=== PATIENT | female | born 1975 | race Two or more races ===

== ENCOUNTER 2024-09-01 07:10 | Outpatient (CLI) | payer OTHER | END 2024-09-01 07:21 | disposition home or self-care (01) | LOC: MAMO-SONO 07:10 | PROVIDERS: ATTEND Surgery | DX: D72.819 Decreased white blood cell count, unspecified (principal); K76.0 Fatty (change of) liver, not elsewhere classified; N60.21 Fibroadenosis of right breast; N60.11 Diffuse cystic mastopathy of right breast; N60.22 Fibroadenosis of left breast; N60.12 Diffuse cystic mastopathy of left breast; D24.1 Benign neoplasm of right breast; Z83.2 Family history of diseases of the blood and blood-forming organs and certain disorders involving the immune mechanism ==

== ENCOUNTER 2024-10-30 06:35 | Outpatient (CLI) | payer OTHER ==
[2024-10-30 07:59] LABS: BASO % 0.5 % (0.1-1.2); EOS # 0.21 (0.04-0.54); EOS % 5.7 % (0.7-7.0); LYMPH # 1.01 (1.18-3.74); LYMPH % 27.4 % (19.3-53.1); MEAN PLATELET VOLUME 10.40 fl (9.4-12.4); MONO # 0.35 (0.24-0.82); MONO % 9.5 % (4.7-12.5); NEUT # 2.09 (1.56-6.13); NEUT % 56.6 % (34.0-71.1); RED CELL DISTRIBUTION WIDTH 14.1 % (11.6-14.4)
[2024-10-30 08:23] LABS: URINE APPEARANCE Clear; URINE BILIRRUBIN Negative (NEGATIVE); URINE BLOOD Negative; URINE COLOR Yellow; URINE GLUCOSE Negative (NEGATIVE); URINE KETONE Trace (NEGATIVE); URINE LEUKOCYTE Trace; URINE NITRATE Negative; URINE PROTEIN Negative (NEGATIVE); URINE UROBILINOGEN 1.0 E.U./dl
[2024-10-30 08:24] LABS: URINE BACTERIA 1432.7 uL (0.0-1933); URINE EPITHELIAL CELLS 25.5 uL (0.0-38.8); URINE RBC 4.1 uL (0.0-20.8); URINE WBC 32.9 uL (0.0-23.2)
[2024-10-30 08:26] LABS: URINE CAST 0.87 uL (0.0-1.40)
[2024-10-30 08:58] LABS: ALT/SGPT 92.0 U/L (12-78); AST/SGOT 44.0 U/L (15-37); BILIRUBIN TOTAL 0.51 mg/dL (0.3-1.2); BUN CREA RATIO 19.0 (7.0-25.0); CHOL HDL RATIO 1.9 (0-5.0); CREATININE SERUM 0.58 mg/dL (0.55-1.02); GFR 110.49; GLOBULINA 3.8 G/DL (2.4-3.5); GLUCOSE FASTING 185.0 mg/dL (65-100); HDL 59.0 mg/dl (40-60); LDL 34.0 mg/dl (0-130); OSMOLALITY SERUM 285.0 MOSM/KG (275-295); T4 FREE 1.06 NG/ML (0.76-1.46); TSH 1.79 uIU/mL (0.358-3.74); VLDL 17.0 (0-39)
[2024-11-01 05:07] LABS: LEUTEINIZING HORMONE 16.2 mIU/mL (.)
== END 2024-10-30 06:39 | disposition home or self-care (01) ==
LOC: LAB 06:35
PROVIDERS: ATTEND Obstetrics & Gynecology
DX: Z01.419 Encounter for gynecological examination (general) (routine) without abnormal findings (principal); C50.919 Malignant neoplasm of unspecified site of unspecified female breast

== ENCOUNTER 2024-10-30 07:34 | Outpatient (CLI) | payer OTHER | END 2024-10-30 07:42 | disposition home or self-care (01) | LOC: SONOGRAMA 07:34 | PROVIDERS: ATTEND Obstetrics & Gynecology | DX: Z01.419 Encounter for gynecological examination (general) (routine) without abnormal findings (principal); C50.919 Malignant neoplasm of unspecified site of unspecified female breast ==

== ENCOUNTER 2024-10-31 08:16 | Outpatient (CLI) | payer OTHER ==
[2024-10-31 09:56] LABS: ob NEGATIVE (NEGATIVE)
== END 2024-10-31 08:18 | disposition home or self-care (01) ==
LOC: LAB 08:16
PROVIDERS: ATTEND Obstetrics & Gynecology
DX: Z01.419 Encounter for gynecological examination (general) (routine) without abnormal findings (principal); C50.919 Malignant neoplasm of unspecified site of unspecified female breast